=== PATIENT | male | born 1925 | race African-American/Black ===

== ENCOUNTER 2016-10-06 11:52 | Inpatient (IN) | payer OTHER ==
[~2016-10-06] VITALS: Ht 172.7 cm; Wt 69.1 kg
[2016-10-06 12:06] VITALS: BP 203/84; PULSE 75; RESP 15; TEMP 98.4; O2SAT 97
[2016-10-06 12:16] VITALS: BP 189/80; PULSE 70; RESP 15; TEMP 98.4; O2SAT 97
--- NOTE | 2016-10-06 12:16 | PD ---
HPI Chief Complaint: Edema Time Seen by Provider: 12:11 Travel History International Travel<30 days: No Contact w/Intl Traveler<30days: No Traveled to known affect area: No History of Present Illness HPI Patient was sent in by the ID for evaluation of left upper and left lower extremity edema. Patient reports left lower edema is chronic in the left upper extremity edema began about 6 days ago. Patient states he awoke with it. Denies any pain, trauma, recent IVs, chest pain, shortness of breath, or fevers. Patient denies anything like this in the past. Patient denies anything making it better or worse. [facility] and was reportedly told to wait for his scheduled appointment that was today. Patient has a history of hypertension, BPH, and COPD. Denies any history of internal bleeding. [facility] Past Medical History COPD: Yes Hypertension: Yes Respiratory: Yes (COPD) Social History Tobacco Use: No Substance Use: No Allergies-Medications (Allergen,Severity, Reaction): Coded Allergies: No Known Allergies (Unverified , 10/06/16) Review of Systems Except as stated in HPI: all other systems reviewed are Neg Physical Exam Narrative GENERAL: Well-developed, well nourished, in no acute distress, and non-ill appearing. SKIN: Focused skin assessment warm and dry. HEAD: Atraumatic. Normocephalic. EYES: Pupils equal and round. EOMI. No scleral icterus. No injection or drainage. ENT: No nasal bleeding or discharge. Mucous membranes pink and moist. NECK: Trachea midline. Supple. No nuclear rigidity. CARDIOVASCULAR: Regular rate and rhythm. No murmur appreciated. Radial and dorsal pulses are 2+, intact, and equal bilaterally. Capillary refill less than 2 seconds. RESPIRATORY: No accessory muscle use. No respiratory distress. Clear to auscultation. Breath sounds equal bilaterally. MUSCULOSKELETAL: No obvious deformities. No clubbing. No cyanosis. Trace edema left lower extremity and 2+ plus edema left upper extremity. Full range of motion. NEUROLOGICAL: Awake and alert. No obvious cranial nerve deficits. Motor grossly within normal limits. Normal speech. PSYCHIATRIC: Appropriate mood and affect; insight and judgment normal. Data Data Last Documented VS Vital Signs Date Time Temp Pulse Resp B/P Pulse Ox O2 Delivery O2 Flow Rate FiO2 10/06/16 14:00 74 15 194/87 97 Room Air 10/06/16 12:16 98.4 Orders Complete Blood Count With Diff (10/06/16 12:04) Basic Metabolic Panel (Bmp) (10/06/16 12:04) Act Partial Throm Time (Ptt) (10/06/16 12:04) Prothrombin Time / Inr (Pt) (10/06/16 12:04) Iv Access Insert/Monitor (10/06/16 12:04) Ecg Monitoring (10/06/16 12:04) Oximetry (10/06/16 12:04) Oxygen Administration (10/06/16 12:04) Chest, Single Ap (10/06/16 12:04) Us Leg Venous Doppler (10/06/16 12:04) Us Arm Venous Doppler (10/06/16 12:04) Enoxaparin Inj (Lovenox Inj) (10/06/16 13:30) Hydralazine Inj (Apresoline Inj) (10/06/16 14:15) Admit Order (Ed Use Only) (10/06/16 14:13) Labs Laboratory Tests Test 10/06/16 12:20 White Blood Count 4.5 TH/MM3 Red Blood Count 4.22 MIL/MM3 Hemoglobin 11.3 GM/DL Hematocrit 36.2 % Mean Corpuscular Volume 85.8 FL Mean Corpuscular Hemoglobin 26.9 PG Mean Corpuscular Hemoglobin 31.3 % Concent Red Cell Distribution Width 13.9 % Platelet Count 211 TH/MM3 Mean Platelet Volume 9.1 FL Neutrophils (%) (Auto) 63.6 % Lymphocytes (%) (Auto) 23.4 % Monocytes (%) (Auto) 10.6 % Eosinophils (%) (Auto) 1.5 % Basophils (%) (Auto) 0.9 % Neutrophils # (Auto) 2.8 TH/MM3 Lymphocytes # (Auto) 1.0 TH/MM3 Monocytes # (Auto) 0.5 TH/MM3 Eosinophils # (Auto) 0.1 TH/MM3 Basophils # (Auto) 0.0 TH/MM3 CBC Comment DIFF FINAL Differential Comment Prothrombin Time 10.8 SEC Prothromb Time International 1.0 RATIO Ratio Activated Partial 28.6 SEC Thromboplast Time Sodium Level 137 MEQ/L Potassium Level 5.3 MEQ/L Chloride Level 104 MEQ/L Carbon Dioxide Level 28.9 MEQ/L Anion Gap 4 MEQ/L Blood Urea Nitrogen 12 MG/DL Creatinine 1.06 MG/DL Estimat Glomerular Filtration 80 ML/MIN Rate Random Glucose 84 MG/DL Calcium Level 8.9 MG/DL MDM Medical Decision Making Medical Screen Exam Complete: Yes Emergency Medical Condition: Yes Interpretation(s) Chest x-ray read by the radiologist shows: 1. Minimal left lower lobe atelectasis. 2. Otherwise, no acute abnormality. Ultrasound read by the radiologist of left lower extremity shows: No evidence of DVT. Oxygen around left upper extremity read by the radiologist shows: Extensive occlusive deep venous thrombosis is noted within the left internal jugular, subclavian, axillary, brachial and basilic veins. Differential Diagnosis DVT, mass, electrolyte abnormality, CHF, other Narrative Course Patient was seen and examined. Patient was placed on [employer] and IV was established. Laboratory radiological studies were ordered. Discussed all findings and plan care with Dr. Carrillo, who is in agreement plan of care and disposition. Patient started on subcutaneous Lovenox ER. Given hydralazine for blood pressure. Discussed all findings and plan care of patient, who is agreeable for admission. All questions were answered. Physician Communication Physician Communication [id number] Becker, who is agreeable to admit the patient. Diagnosis Primary Impression: DVT (deep venous thrombosis) Qualified Code: I82.622 - Acute deep vein thrombosis (DVT) of left upper extremity, unspecified vein Admitting Information Admitting Physician Requests: Admit Condition: Stable Jai Allen Oct 06, 2016 12:16
[2016-10-06 12:40] LABS: AUTOMATED NEUTROPHIL # 2.8 TH/MM3 (1.8-7.7); BASOPHIL % 0.9 % (0.0-2.0); EOSINOPHIL # 0.1 TH/MM3 (0-0.4); EOSINOPHIL % 1.5 % (0.0-4.0); HEMATOCRIT 36.2 % (39.0-51.0); HEMO FLAGS DIFF FINAL; LYMPH % 23.4 % (9.0-44.0); MEAN CELL VOLUME 85.8 FL (80.0-100.0); MEAN CORPUSCULAR HEMOGLOBIN 26.9 PG (27.0-34.0); MEAN CORPUSCULAR HGB CONC 31.3 % (32.0-36.0); MONO % 10.6 % (0.0-8.0); NEUT % 63.6 % (16.0-70.0); PLATELET COUNT 211 TH/MM3 (150-450); RED BLOOD COUNT 4.22 MIL/MM3 (4.50-5.90); RED CELL DISTRIBUTION WIDTH 13.9 % (11.6-17.2); WHITE BLOOD COUNT 4.5 TH/MM3 (4.0-11.0)
--- NOTE | 2016-10-06 12:51 | RADRPT ---
EXAM DATE/TIME: 10/06/2016 12:26 [facility] COMPARISON: No previous studies available for comparison. INDICATIONS : Left leg edema. MEDICAL HISTORY : Hypertension. COPD. Anemia. Enlraged prostate. SURGICAL HISTORY : None. ENCOUNTER: Initial ACUITY: 4 - 6 days PAIN SCORE: 2/10 LOCATION: Left leg. TECHNIQUE: Venous ultrasound of the leg was performed from the inguinal ligament to the proximal calf. Real-gregorio e, color Doppler and spectral tracing, compression and augmentation techniques were used. FINDINGS: There is normal compressibility of the deep venous system from the inguinal region to the proximal ca lf. No echogenic clot is seen in the lumen of the common femoral, femoral, popliteal, and posterior tibial veins. There is a normal response of the venous system to proximal and distal augmentation an d respiration. CONCLUSION: No evidence of deep venous thrombosis within the left lower extremity. Gian To MD on October 06, 2016 at 12:48 Board Certified Radiologist. This report was verified electronically.
--- NOTE | 2016-10-06 12:54 | RADRPT ---
EXAM DATE/TIME: 10/06/2016 12:16 [facility] COMPARISON: No previous studies available for comparison. INDICATIONS : Left arm edema. MEDICAL HISTORY : Hypertension. COPD. Anemia. Enlraged prostate. SURGICAL HISTORY : None. ENCOUNTER: Initial ACUITY: 4 - 6 days PAIN SCORE: 0/10 LOCATION: Left arm. FINDINGS: Extensive occlusive deep venous thrombosis is noted within the left internal jugular, subclavian, axi llary, brachial and basilic veins. CONCLUSION: Extensive occlusive deep venous thrombosis is noted within the left internal jugular, subclavian, axi llary, brachial and basilic veins. Gian To MD on October 06, 2016 at 12:50 Board Certified Radiologist. This report was verified electronically.
[2016-10-06 13:00] LABS: PROTHROMBIN TIME - PATIENT 10.8 SEC (9.8-11.6)
[2016-10-06 13:04] LABS: APTT (PATIENT) 28.6 SEC (24.3-30.1)
[2016-10-06 13:15] LABS: BICARBONATE 28.9 MEQ/L (21.0-32.0)
[2016-10-06 13:16] LABS: POTASSIUM 5.3 MEQ/L (3.5-5.1)
--- NOTE | 2016-10-06 13:25 | RADRPT ---
EXAM DATE/TIME: 10/06/2016 12:50 [facility] COMPARISON: No previous studies available for comparison. INDICATIONS : Shortness of breath, left arm swelling. MEDICAL HISTORY : Hypertension. Chronic obstructive pulmonary disease. SURGICAL HISTORY : None. ENCOUNTER: Initial ACUITY: 3 weeks PAIN SCORE: 0/10 LOCATION: Bilateral chest FINDINGS: Lungs are slightly hyperexpanded. Subtle left lower lobe airspace disease with associated volume loss , consistent with atelectasis. Cardiomediastinal contours are within normal limits given portable hazel hnique. Bony thorax is intact. CONCLUSION: 1. Minimal left lower lobe atelectasis. 2. Otherwise, no acute abnormality. Wayne Cr MD on October 06, 2016 at 13:22 Board Certified Radiologist. This report was verified electronically.
[2016-10-06] MEDS ORDERED: ENOXAPARIN SODIUM 80 MG/0.8 ML SYRINGE SQ ONE (13:30)
[2016-10-06 14:00] VITALS: BP 194/87; PULSE 74; RESP 15; O2SAT 97
[2016-10-06] MEDS ORDERED: hydrALAZINE HCL 20 MG/ML VIAL IV PUSH ONE (14:15)
[2016-10-06 14:21] VITALS: BP_SYST 169; BP_SYST 175; BP_DIAS 77; BP_DIAS 85
[2016-10-06] MEDS ORDERED: ONDANSETRON HCL 4 MG/2 ML VIAL IVP PRN (14:30)
[2016-10-06] MEDS ORDERED: ACETAMINOPHEN 325 MG TAB PO PRN ×2 (14:30)
[2016-10-06] MEDS ORDERED: SODIUM CHLORIDE 0.9% FLUSH 10 ML FLUSH IV FLUSH PRN (14:30)
[2016-10-06] MEDS ORDERED: NALOXONE HCL 0.4 MG/ML AMP IV PRN (14:30)
[2016-10-06 16:30] VITALS: BP 168/70; PULSE 88; RESP 15; O2SAT 97
--- NOTE | 2016-10-06 16:57 | HHI.HP ---
[facility] Service [place] [facility] Primary Care Physician [facility] Admission Diagnosis extensive left upper extremity DVT Diagnoses: Chief Complaint: Left arm swelling Travel History International Travel<30 Days: No Contact w/Intl Traveler <30 Da: No Traveled to Known Affected Are: No History of Present Illness The patient is an 89-year-old male with a past medical history of COPD and chronic Chery catheter who is presenting to the hospital with left arm swelling. He states that one week ago he noticed his left arm has become swollen. He says he has home health care and reports daily weights and blood pressures on a daily basis and mentioned that his left arm was becoming more swollen. The patient denied any pain in the arm. He did endorse a discomfort in his left armpit. He had an appointment today at the [facility] to change his Chery catheter, which he does every month, and the physician assessed him and referred him to the hospital as there were concerns of blood clots in the left arm. The patient denies any history of prior blood clots. He denies any injury to the left upper extremity. He says he has been ambulating with his cane. The patient does not recall a history of blood clots in his family. The patient also mentioned that his left leg swells on and off. The patient says he has experienced chills here and there. He has been having normal bowel movements with stool softeners. He denies any recent travel. He says he's gained weight over the past couple of days. He does not have much of an appetite. He denies any rashes. He endorses some shortness of breath at night secondary to his COPD. He mentions he never had a colonoscopy because the cost of it was astronomical. The patient mentions he was at [facility] last year for hematuria and he had a PICC line placed at that time, though he is unsure if it was in the left or right upper extremity. Review of Systems Except as stated in HPI: all other systems reviewed are Neg Past Family Social History Past Medical History COPD Enlarged prostate Urinary retention requiring chronic Chery Past Surgical History Denies Allergies: Coded Allergies: No Known Allergies (Unverified , 10/06/16) Active Ordered Medications Current Medications Medications (Trade) Dose Ordered Sig/Billie Route Start Time Stop Time Status Last Admin (NS Flush) 2 ml UNSCH PRN IV FLUSH 10/06/16 14:30 (NS Flush) 2 ml BID IV FLUSH 10/06/16 21:00 (Tylenol) 650 mg Q4H PRN PO 10/06/16 14:30 (Zofran Inj) 4 mg Q6H PRN IVP 10/06/16 14:30 (Tylenol) 650 mg Q6H PRN PO 10/06/16 14:30 (Roxicodone) 5 mg Q4H PRN PO 10/06/16 14:30 (Narcan Inj) 0.4 mg UNSCH PRN IV 10/06/16 14:30 (Bethany-Colace) 1 tab BID PO 10/06/16 21:00 (Lovenox Inj) 70 mg Q12H SQ 10/07/16 02:00 (Vasotec Inj) 2.5 mg Q6H PRN IV PUSH 10/06/16 17:00 UNV Family History Diabetes Social History The patient does not smoke or drink. Physical Exam Vital Signs Vital Signs Date Time Temp Pulse Resp B/P Pulse Ox O2 Delivery O2 Flow Rate FiO2 10/06/16 14:21 62 15 175/85 97 10/06/16 14:00 74 15 194/87 97 Room Air 10/06/16 12:16 98.4 70 15 189/80 97 Room Air 10/06/16 12:16 97 Room Air 10/06/16 12:10 15 97 Room Air 10/06/16 12:06 98.4 75 15 203/84 97 Physical Exam GENERAL: Well-developed, well nourished, in no acute distress. SKIN: Focused skin assessment warm and dry. HEAD: Atraumatic. Normocephalic. EYES: Pupils equal and round. EOMI. No scleral icterus. No injection or drainage. ENT: No nasal bleeding or discharge. Mucous membranes pink and moist. NECK: Trachea midline. Supple. No nuclear rigidity. CARDIOVASCULAR: Regular rate and rhythm. No murmur appreciated. RESPIRATORY: Mild wheezing appreciated. MUSCULOSKELETAL: No obvious deformities. No clubbing. No cyanosis. 2+ plus edema left upper extremity from the hand to the neck. No lower extremity edema. : Chery strapped to left leg. NEUROLOGICAL: Awake and alert. No obvious cranial nerve deficits. Motor grossly within normal limits. Normal speech. PSYCHIATRIC: Appropriate mood and affect; insight and judgment normal. Laboratory Laboratory Tests Test 10/06/16 12:20 White Blood Count 4.5 Red Blood Count 4.22 Hemoglobin 11.3 Hematocrit 36.2 Mean Corpuscular Volume 85.8 Mean Corpuscular Hemoglobin 26.9 Mean Corpuscular Hemoglobin 31.3 Concent Red Cell Distribution Width 13.9 Platelet Count 211 Mean Platelet Volume 9.1 Neutrophils (%) (Auto) 63.6 Lymphocytes (%) (Auto) 23.4 Monocytes (%) (Auto) 10.6 Eosinophils (%) (Auto) 1.5 Basophils (%) (Auto) 0.9 Neutrophils # (Auto) 2.8 Lymphocytes # (Auto) 1.0 Monocytes # (Auto) 0.5 Eosinophils # (Auto) 0.1 Basophils # (Auto) 0.0 CBC Comment DIFF FINAL Differential Comment Prothrombin Time 10.8 Prothromb Time International 1.0 Ratio Activated Partial 28.6 Thromboplast Time Sodium Level 137 Potassium Level 5.3 Chloride Level 104 Carbon Dioxide Level 28.9 Anion Gap 4 Blood Urea Nitrogen 12 Creatinine 1.06 Estimat Glomerular Filtration 80 Rate Random Glucose 84 Calcium Level 8.9 Result Diagram: 10/06/16 1220 10/06/16 1220 Imaging Last Impressions Upper Extremity Ultrasound 10/06/16 1204 Signed Impressions: Service Date/Time: Thursday, October 06, 2016 12:16 - CONCLUSION: Extensive occlusive deep venous thrombosis is noted within the left internal jugular, subclavian, axillary, brachial and basilic veins. Gian To MD Lower Extremity Ultrasound 10/06/16 1204 Signed Impressions: Service Date/Time: Thursday, October 06, 2016 12:26 - CONCLUSION: No evidence of deep venous thrombosis within the left lower extremity. Gian To MD Chest X-Ray 10/06/16 1204 Signed Impressions: Service Date/Time: Thursday, October 06, 2016 12:50 - CONCLUSION: 1. Minimal left lower lobe atelectasis. 2. Otherwise, no acute abnormality. Wayne Cr MD Assessment and Plan Assessment and Plan Extensive left sided upper extremity DVT The patient has been having left upper extremity swelling for the past week and has been progressively getting worse. [facility] showed: Extensive occlusive deep venous thrombosis within the left internal jugular, subclavian, axillary, brachial and basilic veins. He was started on Lovenox. He says last year he was hospitalized and had a PICC line placed but is not sure if it was in the left or right upper extremity. - Continue Lovenox 70 mg subcutaneous twice a day. - Pain control with a bowel regimen. - Consult hematology as the DVT is quite extensive. Accelerated hypertension Blood pressure noted to be 203/84 in the emergency department. She received IV hydralazine. - Resume home medications. - Vasotec IV as needed. Anemia Unsure baseline. The patient has never had a colonoscopy. - Follow CBC. - Follow up with hematology. - Check iron studies, folate, B12 and Hemoccult. Urinary retention The patient has a chronic Chery and last changed it on 10/06/16. - Continue home meds. - Chery care. COPD Breathing stable at this time. - oxygen and nebs as needed. - resume home regimen. Hyperkalemia The sample was hemolyzed. - Repeat potassium in the morning. PPx: Lovenox Code Status DNR Discussed Condition With Pt, Emery Allen Physician Certification 2 Midnight Certification Type: Admission for Inpatient Services Order for Inpatient Services The services are ordered in accordance with Medicare regulations or non- Medicare payer requirements, as applicable. In the case of services not specified as inpatient-only, they are appropriately provided as inpatient services in accordance with the 2-midnight benchmark. Estimated LOS (days): 2 days is the estimated time the patient will need to remain in the hospital, assuming treatment plan goals are met and no additional complications. Post-Hospital Plan: Home Christopher Becker DO Oct 06, 2016 16:57
[2016-10-06] MEDS ORDERED: RESP: ALBUTEROL 2.5 MG/IPRATROPIUM 0.5 MG NEB (PRN) NEB (17:00)
[2016-10-06] MEDS ORDERED: TAMS0.4C4 PO (17:08)
[2016-10-06] MEDS ORDERED: ADAL30TA5 PO (17:08)
[2016-10-06] MEDS ORDERED: SYMB80AE INH (17:08)
[2016-10-06] MEDS ORDERED: METO25TA3 PO (17:08)
[2016-10-06] MEDS ORDERED: PROS5TAB PO (17:08)
[2016-10-06] MEDS ORDERED: VENTAER INH (17:11)
[2016-10-06] MEDS ORDERED: CAPT25TA2 PO (17:11)
[2016-10-06] MEDS ORDERED: SUCR1S PO (17:11)
[2016-10-06 18:35] LABS: TRANSFERRIN IRON PROFILE 178 MG/DL (200-360)
[2016-10-06 19:00] LABS: FERRITIN 85 NG/ML (26-388)
[2016-10-06 19:21] VITALS: BP 165/72; PULSE 85; RESP 20; TEMP 98; O2SAT 97
[2016-10-06] MEDS: METOPROLOL TARTRATE 25 MG TAB PO SCH (21:29)
[2016-10-06] MEDS: DOCUSATE SODIUM 50 MG/SENNA 8.6 MG TAB PO SCH (21:29)
[2016-10-06] MEDS: SODIUM CHLORIDE 0.9% FLUSH 10 ML FLUSH IV FLUSH SCH (21:29)
[2016-10-06] MEDS: SUCRALFATE 1 GM/10 ML CUP PO SCH (21:29)
[2016-10-06] MEDS: CAPTOPRIL 25 MG TAB PO SCH (21:29)
[2016-10-06] MEDS: BUDESONIDE-FORMOTEROL 80/4.5 MCG INHALER INH SCH (21:30)
--- NOTE | 2016-10-06 22:07 | MB ---
cc: HUMA GILBERT M.D. DATE OF CONSULTATION: 10/06/2016. REASON FOR CONSULTATION: Extensive occlusive deep vein thrombosis in the left internal jugular, subclavian, axillary, brachial and basilic veins. PATIENT PROFILE: The patient is an 89-year-old black male. He is . He was born in [facility]. He has lived in [place] since 2004. He stopped smoking 25 years ago and smoked a pack of cigarettes per day. He does not drink alcohol. In the past, alcohol ingestion was social. 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 HISTORY OF PRESENT ILLNESS: The patient is an 89-year-old male who generally enjoys good health. He has urinary retention from benign prostatic hypertrophy which has required an indwelling Chery. He has COPD, probably from previous tobacco use. He dates his current problem back to six days ago when he developed acute swelling of the left arm. The swelling was so bad he could close his fist. He presented to the emergency room today with the above history and had an ultrasound of the left upper arm showing extensive occlusive deep venous thrombosis within the left internal jugular, subclavian, axillary, brachial and basilic veins. He also had an ultrasound of the left leg showing no evidence of the venous thrombosis. He had a chest x-ray showing minimal left lower lobe atelectasis; otherwise, no abnormality. This was a single AP view. Other laboratory studies consist of a hemoglobin of 11.3, white count 4500, platelets 211,000. BUN 12, creatinine 1.0, GFR is 80. Iron is 81, TIBC is 249, saturation 32, ferritin 85. B12 is 415 and folate is 12.4. There has been no change in his health. He has had no constitutional symptoms of illness. There is no preceding trauma. He did not in any way use the left arm in a manner different from before. There is no heavy lifting or twisting involving the left arm which would have subjected him to a risk of venous thrombosis. PAST SURGICAL HISTORY: No previous surgery. PAST MEDICAL HISTORY: 1. Indwelling Chery catheter x5 years. 2. Benign prostatic hypertrophy. 3. Hypertension. 4. COPD. MEDICATIONS PRIOR TO ADMISSION: 1. Albuterol. 2. Symbicort. 3. Captopril. 4. Finasteride. 5. Metoprolol. 6. Nifedipine. 7. Flomax. 8. Carafate. ALLERGIES: NO KNOWN ALLERGIES. FAMILY HISTORY: Noncontributory without any history of thromboembolic disease. REVIEW OF SYSTEMS: No change in vision or hearing. No chest pain or palpitations. No shortness of breath. No abdominal or pelvic pain. No change in bowel habits. No weight loss. He has an indwelling Chery catheter. No bone pain other than some mild arthritis. No skin problems. His simple complaints is the acute swelling of the left arm. PHYSICAL EXAMINATION: GENERAL: Physical examination reveals a gentleman who appears well. The left arm is markedly swollen from the shoulder down to the fingers. VITAL SIGNS: Blood pressure is 160/70, respiratory rate 15, pulse 80, afebrile. O2 sat of 97%. HEAD, EYES, EARS, NOSE, THROAT: Head is normocephalic. Sclerae and conjunctivae normal. Oropharynx unremarkable. LYMPHATIC: There is no adenopathy including careful examination a left supraclavicular and left axillary area. HEART: Regular rhythm. LUNGS: Clear without rales, wheezes or rhonchi. ABDOMEN: Soft. There is no enlarged liver spleen. EXTREMITIES: Trace edema except for the left arm which is markedly edematous and swollen. NEUROLOGIC: No focal weakness. Cognition and affect normal. SKIN: Unremarkable. ASSESSMENT: The patient is an 89-year-old male presenting with an acute venous thrombosis of the left upper extremity extending into the left internal jugular, subclavian and axillary veins. This is a significant venous thrombosis. I do not see a precipitating event. RECOMMENDATIONS: 1. CT scan of the thorax to make sure there is not a mediastinal mass as the original chest x-ray was only an AP. I have ordered this 2. I would strongly recommend three months of anticoagulation. I believe a simple thing to do would be go give him apixaban 10 milligrams p.o. twice a day for one week and then apixaban 5 milligrams p.o. twice a day to complete a total of three months. Following the three months, I would recommend one aspirin tablet a day. He has normal renal function and weighs 73 kg. Under these circumstances, He should be able to tolerate the full dose of apixaban. If this cannot be obtained, other options would be Xarelto. If he cannot obtain either of the medicines, then anticoagulation with Coumadin for a minimum of three months would be appropriate. I would begin the apixaban at the point that he is supposed to receive the next dose of Lovenox and stop the Lovenox His current Lovenox is every 12 hours. It will be important to determine that he can obtain the apixaban (eliquis) after discharge and would have discharge planners confirm this. Thank you for the consultation. MD TIERNEY Biggs/STEVE /7:23 PM /9:58 PM JESSICA
[2016-10-07] VITALS (10 sets, daily range): BP systolic 150–207; BP diastolic 72–91; PULSE 67–94; RESP 16–20; TEMP 97–98.6; O2SAT 93–96
[2016-10-07] MEDS ORDERED: ENOXAPARIN SODIUM 80 MG/0.8 ML SYRINGE SQ SCH (02:00)
[2016-10-07 06:21] LABS: AUTOMATED NEUTROPHIL # 2.2 TH/MM3 (1.8-7.7); BASOPHIL # 0.1 TH/MM3 (0-0.2); BASOPHIL % 1.3 % (0.0-2.0); EOSINOPHIL # 0.1 TH/MM3 (0-0.4); EOSINOPHIL % 2.1 % (0.0-4.0); HEMATOCRIT 33.6 % (39.0-51.0); HEMO FLAGS DIFF FINAL; LYMPH % 34.6 % (9.0-44.0); LYMPHOCYTE # 1.5 TH/MM3 (1.0-4.8); MEAN CELL VOLUME 85.2 FL (80.0-100.0); MEAN CORPUSCULAR HEMOGLOBIN 27.2 PG (27.0-34.0); MONO % 10.7 % (0.0-8.0); NEUT % 51.3 % (16.0-70.0); PLATELET COUNT 197 TH/MM3 (150-450); RED BLOOD COUNT 3.95 MIL/MM3 (4.50-5.90); RED CELL DISTRIBUTION WIDTH 13.6 % (11.6-17.2); WHITE BLOOD COUNT 4.3 TH/MM3 (4.0-11.0)
[2016-10-07 06:30] LABS: PROTHROMBIN TIME - PATIENT 11.4 SEC (9.8-11.6)
[2016-10-07 06:47] LABS: ALKALINE PHOSPHATASE 77 U/L (45-117); ALT (GPT) 11 U/L (12-78); ANION GAP 7 MEQ/L (5-15); AST (GOT) 19 U/L (15-37); BICARBONATE 28.8 MEQ/L (21.0-32.0); BLOOD UREA NITROGEN 13 MG/DL (7-18); CHLORIDE 105 MEQ/L (98-107); GLOMERULAR FILTRATION RATE 98 ML/MIN (>89); POTASSIUM 3.4 MEQ/L (3.5-5.1); SODIUM (NA) 141 MEQ/L (136-145); TOTAL BILIRUBIN ADULT 0.3 MG/DL (0.2-1.0)
[2016-10-07] MEDS: SUCRALFATE 1 GM/10 ML CUP PO SCH ×4 (08:06→20:20)
[2016-10-07] MEDS: METOPROLOL TARTRATE 25 MG TAB PO SCH ×2 (08:07→20:20)
[2016-10-07] MEDS: FINASTERIDE 5 MG TAB PO SCH (08:07)
[2016-10-07] MEDS: TAMSULOSIN HCL 0.4 MG CAP PO SCH (08:07)
[2016-10-07] MEDS: SODIUM CHLORIDE 0.9% FLUSH 10 ML FLUSH IV FLUSH SCH ×2 (08:07→20:19)
[2016-10-07] MEDS: CAPTOPRIL 25 MG TAB PO SCH ×3 (08:07→17:18)
[2016-10-07] MEDS: DOCUSATE SODIUM 50 MG/SENNA 8.6 MG TAB PO SCH ×2 (08:07→20:20)
[2016-10-07] MEDS: BUDESONIDE-FORMOTEROL 80/4.5 MCG INHALER INH SCH ×2 (08:07→20:21)
--- NOTE | 2016-10-07 10:38 | RADRPT ---
EXAM DATE/TIME: 10/07/2016 10:08 [facility] COMPARISON: US ARM LEFT VENOUS DOPPLER, October 06, 2016, 12:16. INDICATIONS : Evaluate for mass. RADIATION DOSE: 9.96 CTDIvol (mGy) MEDICAL HISTORY : Cardiovascular disease. Hypertension. Chronic obstructive pulmonary disease. SURGICAL HISTORY : None. ENCOUNTER: Initial ACUITY: 1 day PAIN SCALE: 0/10 LOCATION: Bilateral chest TECHNIQUE: Volumetric scanning of the chest was performed. Using automated exposure control and adjustment of t he mA and/or kV according to patient size, radiation dose was kept as low as reasonably achievable to obtain optimal diagnostic quality images. FINDINGS: LUNGS: There is no consolidation or pneumothorax. No concerning pulmonary nodule is visualized. There is de pendent atelectasis in the left lower lobe. There are bullous changes in the anterior-inferior aspect of the right upper lobe. PLEURAE: There is trace left pleural fluid. MEDIASTINUM: The heart and great vessels demonstrate no acute abnormality. Coronary artery calcification is prese nt and there is severe atherosclerotic disease of the aorta. In the superior aspect of the anterior m ediastinum there is a bilobed fluid density mass measuring 5.2 x 2.5 x 3.8 cm. It abuts the anterior aspect of the right brachiocephalic artery. The left brachiocephalic vein is compressed between the m ass and the right brachiocephalic artery. Although this is a noncontrast examination a do not appreci ate any portions which appears solid. There is no mediastinal or hilar lymphadenopathy. AXILLAE: Within normal limits. No lymphadenopathy. MUSCULOSKELETAL: There are degenerative changes of the thoracic spine. MISCELLANEOUS: The visualized upper abdominal organs demonstrate no acute abnormality. Low-density lesion is partial ly visualized in the right upper pole kidney measuring 2.3 cm. It has density measurements characteri stic of a cyst. CONCLUSION: 1. There is a mass in the superior aspect of the anterior mediastinum measuring 5.2 x 2.5 x 3.8 cm. I t has a mass effect and compresses the left brachiocephalic vein between the mass itself and the righ t brachiocephalic artery. This may be a contributing factor to the recent development of left upper e xtremity venous thrombosis. 2. Based on the appearance on this examination a thymic cyst is a top consideration. Other potential considerations would include a thymoma or less likely a cystic appearing tracey mass. 3. Nonacute findings include coronary artery calcification and severe atherosclerotic disease of the aorta. Segundo Solis MD on October 07, 2016 at 10:23 Board Certified Radiologist. This report was verified electronically.
--- NOTE | 2016-10-07 11:39 | HHI.PR ---
Subjective Remarks The patient said he was feeling better and he was looking forward to going home. He had questions regarding his CT scan results. He states his blood pressure tends to run high at home and [facility]. Objective Vitals Vital Signs Date Time Temp Pulse Resp B/P Pulse Ox O2 Delivery O2 Flow Rate FiO2 10/07/16 08:11 Room Air 10/07/16 08:00 97.0 81 20 175/76 96 10/07/16 07:28 93 21 10/07/16 04:00 98.6 79 20 158/83 95 10/07/16 04:00 Room Air 10/07/16 00:00 Room Air 10/07/16 00:00 98.5 67 20 153/72 95 10/06/16 20:00 Room Air 10/06/16 19:21 98.0 85 20 165/72 97 10/06/16 16:30 88 15 168/70 97 Room Air 10/06/16 14:21 78 15 169/77 97 10/06/16 14:00 74 15 194/87 97 Room Air 10/06/16 12:16 98.4 70 15 189/80 97 Room Air 10/06/16 12:16 97 Room Air 10/06/16 12:10 15 97 Room Air 10/06/16 12:06 98.4 75 15 203/84 97 I/O 10/06/16 10/06/16 10/06/16 10/07/16 10/07/16 10/07/16 07:00 15:00 23:00 07:00 15:00 23:00 Intake Total 360 ml Output Total 550 ml Balance -190 ml Intake Oral 360 ml Output Urine Total 550 ml # Voids 0 Result Diagram: 10/07/16 0541 10/07/16 0541 Imaging Last Impressions Upper Extremity Ultrasound 10/06/16 1204 Signed Impressions: Service Date/Time: Thursday, October 06, 2016 12:16 - CONCLUSION: Extensive occlusive deep venous thrombosis is noted within the left internal jugular, subclavian, axillary, brachial and basilic veins. Gian To MD Lower Extremity Ultrasound 10/06/16 1204 Signed Impressions: Service Date/Time: Thursday, October 06, 2016 12:26 - CONCLUSION: No evidence of deep venous thrombosis within the left lower extremity. Gian To MD Chest X-Ray 10/06/16 1204 Signed Impressions: Service Date/Time: Thursday, October 06, 2016 12:50 - CONCLUSION: 1. Minimal left lower lobe atelectasis. 2. Otherwise, no acute abnormality. Wayne Cr MD Chest CT 10/06/16 0000 Signed Impressions: Service Date/Time: Friday, October 07, 2016 10:08 - CONCLUSION: 1. There is a mass in the superior aspect of the anterior mediastinum measuring 5.2 x 2.5 x 3.8 cm. It has a mass effect and compresses the left brachiocephalic vein between the mass itself and the right brachiocephalic artery. This may be a contributing factor to the recent development of left upper extremity venous thrombosis. 2. Based on the appearance on this examination a thymic cyst is a top consideration. Other potential considerations would include a thymoma or less likely a cystic appearing tracey mass. 3. Nonacute findings include coronary artery calcification and severe atherosclerotic disease of the aorta. Segundo Solis MD Objective Remarks GENERAL: Well-developed, well nourished, in no acute distress. SKIN: Focused skin assessment warm and dry. HEAD: Atraumatic. Normocephalic. EYES: Pupils equal and round. EOMI. No scleral icterus. No injection or drainage. ENT: No nasal bleeding or discharge. Mucous membranes pink and moist. NECK: Trachea midline. Supple. No nuclear rigidity. CARDIOVASCULAR: Regular rate and rhythm. No murmur appreciated. RESPIRATORY: Mild wheezing appreciated. MUSCULOSKELETAL: No obvious deformities. No clubbing. No cyanosis. 2+ plus edema left upper extremity from the hand to the neck. No lower extremity edema. : Chery strapped to left leg. NEUROLOGICAL: Awake and alert. No obvious cranial nerve deficits. Motor grossly within normal limits. Normal speech. PSYCHIATRIC: Appropriate mood and affect; insight and judgment normal. Medications and IVs Current Medications Medications (Trade) Dose Ordered Sig/Billie Route Start Time Stop Time Status Last Admin (NS Flush) 2 ml UNSCH PRN IV FLUSH 10/06/16 14:30 (NS Flush) 2 ml BID IV FLUSH 10/06/16 21:00 10/07/16 08:07 (Tylenol) 650 mg Q4H PRN PO 10/06/16 14:30 (Zofran Inj) 4 mg Q6H PRN IVP 10/06/16 14:30 (Tylenol) 650 mg Q6H PRN PO 10/06/16 14:30 (Roxicodone) 5 mg Q4H PRN PO 10/06/16 14:30 (Narcan Inj) 0.4 mg UNSCH PRN IV 10/06/16 14:30 (Bethany-Colace) 1 tab BID PO 10/06/16 21:00 10/07/16 08:07 (Vasotec Inj) 2.5 mg Q6H PRN IV PUSH 10/06/16 17:00 (Symbicort 80-4.5 Mcg Inh) 2 puff Q12HR INH 10/06/16 21:00 10/07/16 08:07 (Capoten) 25 mg TID PO 10/06/16 18:00 10/07/16 08:07 (Proscar) 5 mg DAILY PO 10/07/16 09:00 10/07/16 08:07 (Lopressor) 25 mg BID PO 10/06/16 21:00 10/07/16 08:07 (Carafate Liq) 1 gm QID PO 10/06/16 18:00 10/07/16 08:06 (Flomax) 0.4 mg DAILY PO 10/07/16 09:00 10/07/16 08:07 Potassium Bicarb/ Potassium Chloride 50 meq 50 meq ONCE ONCE PO 10/07/16 09:15 10/07/16 09:16 UNV (Heparin-D5W Inj) 250 ml @ 0 mls/hr TITRATE IV 10/07/16 11:30 UNV (Procardia Xl) 30 mg BID PO 10/07/16 11:45 UNV A/P Assessment and Plan Extensive left sided upper extremity DVT/ Mediastinal mass The patient has been having left upper extremity swelling for the past week and has been progressively getting worse. [facility] showed: Extensive occlusive deep venous thrombosis within the left internal jugular, subclavian, axillary, brachial and basilic veins. He was started on Lovenox. Hematology consult appreciated. CT chest showed: There is a mass in the superior aspect of the anterior mediastinum measuring 5.2 x 2.5 x 3.8 cm; It has a mass effect and compresses the left brachiocephalic vein between the mass itself and the right brachiocephalic artery; Based on the appearance on this examination a thymic cyst is a top consideration. - switch Lovenox to a heparin gtt. - cardiothoracic surgery consult requested regarding mediastinal mass. - follow up with hematology. - Pain control with a bowel regimen. Accelerated hypertension Blood pressure noted to be 203/84 in the emergency department. He received IV hydralazine. Blood pressure continues to fluctuate. - Resume home medications. Add HCTZ if no improvement. - Vasotec IV as needed. Anemia Unsure baseline. The patient has never had a colonoscopy. Iron studies noted. - Follow CBC. - Follow up with hematology. - Check Hemoccult. Urinary retention The patient has a chronic Chery and last changed it on 10/06/16. - Continue home meds. - Chery care. COPD Breathing stable at this time. - oxygen and nebs as needed. - resume home regimen. PPx: Lovenox Discharge Planning Awaiting CT surgery Christopher Craig DO Oct 07, 2016 11:39
[2016-10-07] MEDS ORDERED: POTASSIUM CHLORIDE 25 MEQ EFFERVESCENT TAB PO ONE (12:00)
[2016-10-07] MEDS: NIFEdipine 30 MG SUSTAINED RELEASE TAB PO SCH ×2 (12:28→20:20)
[2016-10-07] MEDS: HEPARIN-D5W INJ 250 ML IV SCH (12:33)
[2016-10-07] MEDS ORDERED: APIXABAN 5 MG TABLET PO SCH (14:00)
[2016-10-07] MEDS: ENALAPRILAT 2.5 MG/2 ML VIAL IV PUSH PRN (17:18)
--- NOTE | 2016-10-07 19:30 | PD.ONC.PN ---
Subjective Subjective Remarks left arm feels less heavy Objective Data Date Time Temp Pulse Resp B/P Pulse Ox O2 Delivery O2 Flow Rate FiO2 10/07/16 18:04 174/80 10/07/16 17:25 202/84 10/07/16 16:00 Room Air 10/07/16 16:00 97.9 91 20 207/91 93 10/07/16 12:00 98.5 77 20 198/86 94 10/07/16 12:00 98.5 94 20 198/ 94 10/07/16 12:00 Room Air 10/07/16 08:11 Room Air 10/07/16 08:00 97.0 81 20 175/76 96 10/07/16 07:28 93 21 10/07/16 04:00 98.6 79 20 158/83 95 10/07/16 04:00 Room Air 10/07/16 00:00 Room Air 10/07/16 00:00 98.5 67 20 153/72 95 10/06/16 20:00 Room Air 10/07/16 10/07/16 10/07/16 07:00 15:00 23:00 Intake Total 360 ml 385 ml Output Total 550 ml 450 ml Balance -190 ml -65 ml Result Diagram: 10/07/16 0541 10/07/16 0541 Laboratory Results Laboratory Tests Test 10/07/16 10/07/16 05:41 12:45 White Blood Count 4.3 TH/MM3 Red Blood Count 3.95 MIL/MM3 Hemoglobin 10.7 GM/DL Hematocrit 33.6 % Mean Corpuscular Volume 85.2 FL Mean Corpuscular Hemoglobin 27.2 PG Mean Corpuscular Hemoglobin 32.0 % Concent Red Cell Distribution Width 13.6 % Platelet Count 197 TH/MM3 Mean Platelet Volume 8.7 FL Neutrophils (%) (Auto) 51.3 % Lymphocytes (%) (Auto) 34.6 % Monocytes (%) (Auto) 10.7 % Eosinophils (%) (Auto) 2.1 % Basophils (%) (Auto) 1.3 % Neutrophils # (Auto) 2.2 TH/MM3 Lymphocytes # (Auto) 1.5 TH/MM3 Monocytes # (Auto) 0.5 TH/MM3 Eosinophils # (Auto) 0.1 TH/MM3 Basophils # (Auto) 0.1 TH/MM3 CBC Comment DIFF FINAL Differential Comment Prothrombin Time 11.4 SEC Prothromb Time International 1.0 RATIO Ratio Sodium Level 141 MEQ/L Potassium Level 3.4 MEQ/L Chloride Level 105 MEQ/L Carbon Dioxide Level 28.8 MEQ/L Anion Gap 7 MEQ/L Blood Urea Nitrogen 13 MG/DL Creatinine 0.89 MG/DL Estimat Glomerular Filtration 98 ML/MIN Rate Random Glucose 85 MG/DL Calcium Level 8.2 MG/DL Total Bilirubin 0.3 MG/DL Aspartate Amino Transf 19 U/L (AST/SGOT) Alanine Aminotransferase 11 U/L (ALT/SGPT) Alkaline Phosphatase 77 U/L Total Protein 6.0 GM/DL Albumin 2.7 GM/DL Activated Partial 35.0 SEC Thromboplast Time Imaging Studies Last 48 hours Impressions Upper Extremity Ultrasound 10/06/16 1204 Signed Impressions: Service Date/Time: Thursday, October 06, 2016 12:16 - CONCLUSION: Extensive occlusive deep venous thrombosis is noted within the left internal jugular, subclavian, axillary, brachial and basilic veins. Gian To MD Lower Extremity Ultrasound 10/06/16 1204 Signed Impressions: Service Date/Time: Thursday, October 06, 2016 12:26 - CONCLUSION: No evidence of deep venous thrombosis within the left lower extremity. Gian To MD Chest X-Ray 10/06/16 1204 Signed Impressions: Service Date/Time: Thursday, October 06, 2016 12:50 - CONCLUSION: 1. Minimal left lower lobe atelectasis. 2. Otherwise, no acute abnormality. Wayne Cr MD Chest CT 10/06/16 0000 Signed Impressions: Service Date/Time: Friday, October 07, 2016 10:08 - CONCLUSION: 1. There is a mass in the superior aspect of the anterior mediastinum measuring 5.2 x 2.5 x 3.8 cm. It has a mass effect and compresses the left brachiocephalic vein between the mass itself and the right brachiocephalic artery. This may be a contributing factor to the recent development of left upper extremity venous thrombosis. 2. Based on the appearance on this examination a thymic cyst is a top consideration. Other potential considerations would include a thymoma or less likely a cystic appearing tracey mass. 3. Nonacute findings include coronary artery calcification and severe atherosclerotic disease of the aorta. Segundo Solis MD Administered Medications Medications (Trade) Dose Ordered Sig/Billie Route PRN Reason Start Time Stop Time Status Last Admin Dose Admin Sodium Chloride (NS Flush) 2 ml BID IV FLUSH 10/06/16 21:00 10/07/16 08:07 Senna/Docusate Sodium (Bethany-Colace) 1 tab BID PO 10/06/16 21:00 10/07/16 08:07 Enalaprilat (Vasotec Inj) 2.5 mg Q6H PRN IV PUSH SBP> OR = 180, DBP> OR = 100 10/06/16 17:00 10/07/16 17:18 Budesonide/ Formoterol Fumarate (Symbicort 80-4.5 Mcg Inh) 2 puff Q12HR INH 10/06/16 21:00 10/07/16 08:07 Captopril (Capoten) 25 mg TID PO 10/06/16 18:00 10/07/16 17:18 Finasteride (Proscar) 5 mg DAILY PO 10/07/16 09:00 10/07/16 08:07 Metoprolol Tartrate (Lopressor) 25 mg BID PO 10/06/16 21:00 10/07/16 08:07 Sucralfate (Carafate Liq) 1 gm QID PO 10/06/16 18:00 10/07/16 17:18 Tamsulosin HCl 0.4 mg 0.4 mg DAILY PO 10/07/16 09:00 10/07/16 08:07 Heparin Sodium/ Dextrose (Heparin-D5W Inj) 250 ml @ 0 mls/hr TITRATE IV 10/07/16 11:30 10/07/16 12:33 Nifedipine (Procardia Xl) 30 mg BID PO 10/07/16 12:00 10/07/16 12:28 Objective Remarks GENERAL: Well-nourished, well-developed patient. SKIN: Warm and dry. HEAD: Normocephalic. EYES: No scleral icterus. No injection or drainage. NECK: Supple, trachea midline. No JVD or lymphadenopathy. LYMPHATIC: No adenopathy. CARDIOVASCULAR: Regular rate and rhythm without murmurs. RESPIRATORY: Breath sounds equal bilaterally. No accessory muscle use. GASTROINTESTINAL: Abdomen soft, non-tender, nondistended. EXTREMITIES: remains with significant swelling entire left arm and supraclavicular area MUSCULOSKELETAL: Adequate muscle tone. NEUROLOGICAL: No obvious focal deficit. Awake, alert, and oriented x3. PSYCHIATRIC: Appropriate mood and affect; insight and judgment normal. Assessment/Plan Assessment 1: THROMBOSIS LEFT ARM/AXILLA, DUE TO MASS IN SUPERIOR MEDIASTINUM: identified on ct of thorax. Plan 1: consult thoracic surgery for recommendations 2: continue heparin. 3: findings and images reviewed with patient and he is reluctant to consider any intervention due to age. I asked him to listen to the thoracic surgeon. Charly Salinas MD Oct 07, 2016 19:30
[2016-10-07 20:07] LABS: APTT (PATIENT) 93.4 SEC (24.3-30.1)
[2016-10-07 22:33] LABS: APTT (PATIENT) 65.3 SEC (24.3-30.1)
[2016-10-08] VITALS (7 sets, daily range): BP systolic 115–180; BP diastolic 56–81; PULSE 62–83; RESP 18–20; TEMP 97.6–98.8; O2SAT 93–96
[2016-10-08] MEDS: NIFEdipine 30 MG SUSTAINED RELEASE TAB PO SCH ×2 (08:27→20:19)
[2016-10-08] MEDS: FINASTERIDE 5 MG TAB PO SCH (08:27)
[2016-10-08] MEDS: TAMSULOSIN HCL 0.4 MG CAP PO SCH (08:27)
[2016-10-08] MEDS: DOCUSATE SODIUM 50 MG/SENNA 8.6 MG TAB PO SCH ×2 (08:27→20:19)
[2016-10-08] MEDS: SUCRALFATE 1 GM/10 ML CUP PO SCH ×4 (08:27→20:19)
[2016-10-08] MEDS: METOPROLOL TARTRATE 25 MG TAB PO SCH ×2 (08:27→20:18)
[2016-10-08] MEDS: CAPTOPRIL 25 MG TAB PO SCH ×3 (08:27→16:46)
[2016-10-08] MEDS: BUDESONIDE-FORMOTEROL 80/4.5 MCG INHALER INH SCH ×2 (08:27→20:18)
[2016-10-08] MEDS: SODIUM CHLORIDE 0.9% FLUSH 10 ML FLUSH IV FLUSH SCH ×2 (08:28→21:00)
--- NOTE | 2016-10-08 09:32 | HHI.PR ---
Subjective Remarks Patient seen and examined this am. Vitals stable, intermittent hypertension. Feels well, no complaints. States left arm swelling improved, he can see his knuckles and make a fist. Objective Vital Signs Date Time Temp Pulse Resp B/P Pulse Ox O2 Delivery O2 Flow Rate FiO2 10/08/16 08:29 Room Air 10/08/16 08:00 98.1 79 20 180/79 94 10/08/16 04:00 Room Air 10/08/16 04:00 98.5 69 18 156/72 96 10/08/16 00:00 98.0 66 18 160/64 96 10/08/16 00:00 Room Air 10/07/16 20:13 95 21 10/07/16 20:00 98.4 72 16 150/72 95 10/07/16 20:00 Room Air 10/07/16 18:04 174/80 10/07/16 17:25 202/84 10/07/16 16:00 Room Air 10/07/16 16:00 97.9 91 20 207/91 93 10/07/16 12:00 98.5 77 20 198/86 94 10/07/16 12:00 98.5 94 20 198/ 94 10/07/16 12:00 Room Air I/O 10/07/16 10/07/16 10/07/16 10/08/16 10/08/16 10/08/16 07:00 15:00 23:00 07:00 15:00 23:00 Intake Total 360 ml 385 ml 326 ml 75 ml Output Total 550 ml 450 ml 1000 ml 300 ml Balance -190 ml -65 ml -674 ml -225 ml Intake Oral 360 ml 360 ml 240 ml 0 ml IV Total 25 ml 86 ml 75 ml Output Urine Total 550 ml 450 ml 1000 ml 300 ml # Bowel Movements 1 0 0 Result Diagram: 10/07/16 0541 10/07/16 0541 Imaging Last Impressions Upper Extremity Ultrasound 10/06/16 1204 Signed Impressions: Service Date/Time: Thursday, October 06, 2016 12:16 - CONCLUSION: Extensive occlusive deep venous thrombosis is noted within the left internal jugular, subclavian, axillary, brachial and basilic veins. Gian To MD Lower Extremity Ultrasound 10/06/16 1204 Signed Impressions: Service Date/Time: Thursday, October 06, 2016 12:26 - CONCLUSION: No evidence of deep venous thrombosis within the left lower extremity. Gian To MD Chest X-Ray 10/06/16 1204 Signed Impressions: Service Date/Time: Thursday, October 06, 2016 12:50 - CONCLUSION: 1. Minimal left lower lobe atelectasis. 2. Otherwise, no acute abnormality. Wayne Cr MD Chest CT 10/06/16 0000 Signed Impressions: Service Date/Time: Friday, October 07, 2016 10:08 - CONCLUSION: 1. There is a mass in the superior aspect of the anterior mediastinum measuring 5.2 x 2.5 x 3.8 cm. It has a mass effect and compresses the left brachiocephalic vein between the mass itself and the right brachiocephalic artery. This may be a contributing factor to the recent development of left upper extremity venous thrombosis. 2. Based on the appearance on this examination a thymic cyst is a top consideration. Other potential considerations would include a thymoma or less likely a cystic appearing tracey mass. 3. Nonacute findings include coronary artery calcification and severe atherosclerotic disease of the aorta. Segundo Solis MD Other Results GENERAL: SKIN: Warm and dry. HEAD: Normocephalic. EYES: No scleral icterus. No injection or drainage. NECK: Supple, trachea midline. No JVD or lymphadenopathy. CARDIOVASCULAR: Regular rate and rhythm without murmurs, gallops, or rubs. RESPIRATORY: Breath sounds equal bilaterally. No accessory muscle use. GASTROINTESTINAL: Abdomen soft, non-tender, nondistended. MUSCULOSKELETAL: No cyanosis, or edema. BACK: Nontender without obvious deformity. No CVA tenderness. A/P Problem List: (1) DVT (deep venous thrombosis) ICD Code: I82.409 (2) COPD (chronic obstructive pulmonary disease) ICD Code: J44.9 (3) HTN (hypertension) ICD Code: I10 Assessment and Plan 89 yo male with: Extensive left sided upper extremity DVT/ Mediastinal mass - US showed: Extensive occlusive deep venous thrombosis within the left internal jugular, subclavian, axillary, brachial and basilic veins. - Hematology consult: 3 months of anticoagulation recommended, apixaban 10 mg PO BID x1 week, then 5 mg BID for the remainder of the time. Also recommended 1 asa daily. Patient is currently on heparin drip. - CT chest showed: There is a mass in the superior aspect of the anterior mediastinum measuring 5.2 x 2.5 x 3.8 cm; It has a mass effect and compresses the left brachiocephalic vein between the mass itself and the right brachiocephalic artery; Based on the appearance on this examination a thymic cyst is a top consideration. - CT surgery was consulted by Kaylee Accelerated hypertension BP better controlled today. - current home emds: procardia 30 mg PO BID, metoprolol 25 mg BID, captopril 25 mg TID - Add HCTZ if no improvement. - Vasotec IV as needed. Anemia Unsure baseline. The patient has never had a colonoscopy. Iron studies noted. - Follow CBC. - Follow up with hematology. - Check Hemoccult. Urinary retention The patient has a chronic Chery and last changed it on 10/06/16. - Continue home meds. - Chery care. COPD Breathing stable at this time. - oxygen and nebs as needed. - resume home regimen. PPx: currently on heparin drip Discharge Planning d/c pending consultation by CT surgery in additional to outpatient anticoagulation regemine. Problem Qualifiers (1) DVT (deep venous thrombosis): Qualified Code: I82.622 - Acute deep vein thrombosis (DVT) of left upper extremity, unspecified vein Greta Mcdowell MD R3 Oct 08, 2016 09:32
--- NOTE | 2016-10-08 10:11 | HHI.FPPN ---
Addendum to progress note ADDENDUM Reason for addendum: Additonal documentation Additional information Case discussed with CT surgery. Three options for mediastinal cystic mass: no surgical intervention, sternotomy with mass removal, see if IR can stick needle in cystic mass to decompress. Patient wishes to discuss options with his sister. Will consult IR to see if need decompression is an option. CT surgery will re-evaluate the patient tomorrow. Greta Mcdowell MD R3 Oct 08, 2016 10:11
--- NOTE | 2016-10-08 10:55 | PD.CAR.PN ---
CVT Progress Note Subjective/Hospital Course: Clinical and CT findings discussed with patient. Treatment options include median sternotomy with resection of anterior mediastinal mass. Alternatively, the cystic mass maybe amenable to percutaneous aspiration in efforts to relieve the innominate vein compression. If he decides against surgical intervention, ti may be worthwhile to see if IR can aspirate the cyst. He will discuss the offered options with his sister tomorrow and let us know. Will follow with you. Objective: Vital Signs Date Time Temp Pulse Resp B/P Pulse Ox O2 Delivery O2 Flow Rate FiO2 10/08/16 08:29 Room Air 10/08/16 08:00 98.1 79 20 180/79 94 10/08/16 07:35 95 21 10/08/16 04:00 Room Air 10/08/16 04:00 98.5 69 18 156/72 96 10/08/16 00:00 98.0 66 18 160/64 96 10/08/16 00:00 Room Air 10/07/16 20:13 95 21 10/07/16 20:00 98.4 72 16 150/72 95 10/07/16 20:00 Room Air 10/07/16 18:04 174/80 10/07/16 17:25 202/84 10/07/16 16:00 Room Air 10/07/16 16:00 97.9 91 20 207/91 93 10/07/16 12:00 98.5 77 20 198/86 94 10/07/16 12:00 98.5 94 20 198/ 94 10/07/16 12:00 Room Air Labs: Laboratory Tests Test 10/08/16 05:55 Activated Partial 72.0 SEC Thromboplast Time (24.3-30.1) Result Diagram: 10/07/16 0541 10/07/16 0541 Kael Leroy MD Oct 08, 2016 10:55
--- NOTE | 2016-10-08 12:51 | MB ---
cc: PIERRE CRAMER MD, SOHIT K. MD DATE OF CONSULTATION: 10/08/2016 REFERRING PHYSICIAN: Dr. Cramer REASON FOR CONSULTATION: Mediastinal mass. HISTORY Mr. Washington is a very pleasant 89-year-old gentleman with a known history of COPD, hypertension and BPH who presents with approximately 1-week history of progressive left upper extremity swelling. He has a chronic indwelling urinary catheter for which he goes to the [facility] to have it replaced every month and during his visit there for that the physician assessed him and determined it to be significant with underlying suspicion for upper extremity thrombus. He was sent to the hospital for further management. Following admission here, he has undergone further workup with a chest x-ray and subsequent chest CT which demonstrates a large anterior cystic mass with compression of the innominate vein. I am now being consulted for surgical opinion regarding the CT findings. At the present time he is clinically stable. His upper extremity swelling is improved, however, the left upper extremity is significantly more swollen than the right upper extremity. He is on anticoagulation for the thrombus and the compressive occlusion of the innominate vein. He denies any arm pain or neurologic deficits. PAST MEDICAL HISTORY: Significant for: 1. COPD. 2. Hypertension. 3. BPH. 4. Chronic indwelling Chery catheter for five years. PAST SURGICAL HISTORY: Unremarkable. ALLERGIES: No known allergies. ADMISSION MEDICATIONS 1. Albuterol. 2. Symbicort. 3. Captopril. 4. Finasteride. 5. Metoprolol. 6. Nifedipine. 7. Flomax. 8. Carafate. FAMILY HISTORY: Family history is noncontributory. REVIEW OF SYSTEMS: Review of systems is as above. All other parameters are negative. PHYSICAL EXAMINATION: On physical emanation today he is 68 kg and is 172 cm tall, blood pressure is 180/79 in the right arm, with pulse 79 which is regular, respiratory date 18 and he is afebrile. HEENT: Normocephalic, atraumatic. Pupils are round and reactive. Extraocular muscles are intact. No cervical lymphadenopathy, carotid bruits or JVD. Cardiovascular: Regular rate and rhythm. Normal S1-S2 without gallops, rubs or murmurs. Lungs: Clear to auscultation bilaterally with good exchange. No wheezing or stridor. Abdomen: The abdomen is soft, nontender, nondistended with normoactive bowel sounds. No hepatosplenomegaly. Bilateral lower extremity pulses are intact without cyanosis, clubbing or edema, no venous varicosities. Neurological: Intact with no focal deficits. Extremities: Upper extremity examination reveals a normal right upper extremity with a significantly swollen left upper extremity with edema up to the upper arm. Both radial and ulnar pulses are palpable with compression. He is neurologically intact with intact motor and sensory function. IMPRESSION 1. 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 2. COPD. 3. Hypertension 4. BPH. 5. Chronic indwelling catheter. PLAN: The clinical and CT findings were discussed in detail with the patient today. Treatment options available include mediastinotomy with resection of the anterior mediastinal mass and decompression of the innominate vein. At the present time he is not sure that he is willing to, or strong enough to tolerate a surgical procedure to that extent given his advanced age and COPD. If, in fact, he opts not to proceed with surgical resection, alternatively, a decompression aspiration of the cyst may assist in alleviating the extrinsic compression on the innominate vein and therefore allowing resumption of flow to the vein. There is a chance that this may likely result in the future recurrence of the cyst. If in fact this is the option that he wishes to consider then it may be worthwhile to involve the interventional radiologist and ascertain whether this is feasible from their standpoint. He will talk to his sister tomorrow and discuss it further with her and decide on which treatment options to proceed with. Will continue to follow him with you and delineate a treatment plan as further discussions with the patient and his sister. Thank you for allowing me to participate in the care of this patient. Kael CARLOS /11:14 AM /12:41 PM
[2016-10-08] MEDS: HEPARIN-D5W INJ 250 ML IV SCH (15:56)
[2016-10-09] VITALS (7 sets, daily range): BP systolic 130–188; BP diastolic 60–86; PULSE 59–75; RESP 17–20; TEMP 98–98.5; O2SAT 94–97
[2016-10-09 08:28] LABS: APTT (PATIENT) 50.4 SEC (24.3-30.1)
[2016-10-09] MEDS: TAMSULOSIN HCL 0.4 MG CAP PO SCH (08:38)
[2016-10-09] MEDS: FINASTERIDE 5 MG TAB PO SCH (08:38)
[2016-10-09] MEDS: DOCUSATE SODIUM 50 MG/SENNA 8.6 MG TAB PO SCH ×2 (08:39→20:10)
[2016-10-09] MEDS: BUDESONIDE-FORMOTEROL 80/4.5 MCG INHALER INH SCH ×2 (08:39→20:10)
[2016-10-09] MEDS: SODIUM CHLORIDE 0.9% FLUSH 10 ML FLUSH IV FLUSH SCH ×2 (08:39→20:09)
[2016-10-09] MEDS: METOPROLOL TARTRATE 25 MG TAB PO SCH ×2 (08:39→20:10)
[2016-10-09] MEDS: SUCRALFATE 1 GM/10 ML CUP PO SCH ×4 (08:39→20:10)
[2016-10-09] MEDS: CAPTOPRIL 25 MG TAB PO SCH ×2 (08:39→11:45)
[2016-10-09] MEDS: NIFEdipine 30 MG SUSTAINED RELEASE TAB PO SCH ×2 (08:39→20:10)
--- NOTE | 2016-10-09 10:30 | RADRPT ---
EXAM DATE/TIME: 10/09/2016 00:00 [facility] COMPARISON: CT THORAX W/O CONTRAST, October 07, 2016, 10:08. INDICATIONS : Cystic mass aspiration. CONSULTATION: The patient is currently on heparin drip for DVT thrombosis in the left arm. The mass in the anterio r mediastinum is most likely the thymic cyst. This is causing minimal venous compression. This can be easily evaluated by PET scan when the patient is clinically stable. If this is negative by PET no further evaluation may be necessary, however this could be aspirated as an outpatient in an attempt to relieve the venous compression. If this is positive by PET scan could attempt percutaneou s biopsy however thymic tumors are difficult to diagnose by biopsy. This probably does not represent lymphoma. Thank you for this consultation. Jerry Harden MD FACR on October 09, 2016 at 10:21 Board Certified Radiologist. This report was verified electronically.
[2016-10-09] MEDS ORDERED: POTASSIUM CHLORIDE 20 MEQ CONTROLLED RELEASE TAB PO ONE (14:15)
--- NOTE | 2016-10-09 14:15 | HHI.PR ---
Objective Vitals Vital Signs Date Time Temp Pulse Resp B/P Pulse Ox O2 Delivery O2 Flow Rate FiO2 10/09/16 12:00 98.1 59 18 164/85 96 10/09/16 08:00 Room Air 10/09/16 08:00 97 21 10/09/16 08:00 98.0 75 18 188/86 95 10/09/16 04:00 Room Air 10/09/16 03:50 98.5 65 17 136/64 94 10/09/16 00:10 98.3 67 17 130/60 96 10/08/16 20:00 Room Air 10/08/16 19:30 97.8 83 18 175/81 95 10/08/16 16:00 Room Air 10/08/16 16:00 98.8 73 20 132/60 93 I/O 10/08/16 10/08/16 10/08/16 10/09/16 10/09/16 10/09/16 07:00 15:00 23:00 07:00 15:00 23:00 Intake Total 75 ml 480 ml 552 ml 71 ml Output Total 300 ml 300 ml 400 ml 250 ml Balance -225 ml 180 ml 152 ml -179 ml Intake Oral 0 ml 480 ml 480 ml 0 ml IV Total 75 ml 72 ml 71 ml Output Urine Total 300 ml 300 ml 400 ml 250 ml # Bowel Movements 0 1 0 0 Result Diagram: 10/07/16 0541 10/07/16 0541 Hira Bryant MD Oct 09, 2016 14:15
--- NOTE | 2016-10-09 14:44 | HHI.PR ---
Subjective Remarks Denies cp/sob states swelling in the upper extremity is improving Nights fevers or chills BP noted to be very elevated. Objective Vitals Vital Signs Date Time Temp Pulse Resp B/P Pulse Ox O2 Delivery O2 Flow Rate FiO2 10/09/16 12:00 98.1 59 18 164/85 96 10/09/16 08:00 Room Air 10/09/16 08:00 97 21 10/09/16 08:00 98.0 75 18 188/86 95 10/09/16 04:00 Room Air 10/09/16 03:50 98.5 65 17 136/64 94 10/09/16 00:10 98.3 67 17 130/60 96 10/08/16 20:00 Room Air 10/08/16 19:30 97.8 83 18 175/81 95 10/08/16 16:00 Room Air 10/08/16 16:00 98.8 73 20 132/60 93 I/O 10/08/16 10/08/16 10/08/16 10/09/16 10/09/16 10/09/16 07:00 15:00 23:00 07:00 15:00 23:00 Intake Total 75 ml 480 ml 552 ml 71 ml Output Total 300 ml 300 ml 400 ml 250 ml Balance -225 ml 180 ml 152 ml -179 ml Intake Oral 0 ml 480 ml 480 ml 0 ml IV Total 75 ml 72 ml 71 ml Output Urine Total 300 ml 300 ml 400 ml 250 ml # Bowel Movements 0 1 0 0 Result Diagram: 10/07/16 0541 10/07/16 0541 Imaging Last Impressions Upper Extremity Ultrasound 10/06/16 120 Signed Impressions: Service Date/Time: Thursday, October 06, 2016 12:16 - CONCLUSION: Extensive occlusive deep venous thrombosis is noted within the left internal jugular, subclavian, axillary, brachial and basilic veins. Gian To MD Lower Extremity Ultrasound 10/06/16 120 Signed Impressions: Service Date/Time: Thursday, October 06, 2016 12:26 - CONCLUSION: No evidence of deep venous thrombosis within the left lower extremity. Gian To MD Chest X-Ray 10/06/16 1204 Signed Impressions: Service Date/Time: Thursday, October 06, 2016 12:50 - CONCLUSION: 1. Minimal left lower lobe atelectasis. 2. Otherwise, no acute abnormality. Wayne Cr MD Chest CT 10/06/16 0000 Signed Impressions: Service Date/Time: Friday, October 07, 2016 10:08 - CONCLUSION: 1. There is a mass in the superior aspect of the anterior mediastinum measuring 5.2 x 2.5 x 3.8 cm. It has a mass effect and compresses the left brachiocephalic vein between the mass itself and the right brachiocephalic artery. This may be a contributing factor to the recent development of left upper extremity venous thrombosis. 2. Based on the appearance on this examination a thymic cyst is a top consideration. Other potential considerations would include a thymoma or less likely a cystic appearing tracey mass. 3. Nonacute findings include coronary artery calcification and severe atherosclerotic disease of the aorta. Segundo Solis MD Objective Remarks GENERAL: Well-developed, well nourished, in no acute distress. SKIN: Focused skin assessment warm and dry. HEAD: Atraumatic. Normocephalic. EYES: Pupils equal and round. EOMI. No scleral icterus. No injection or drainage. ENT: No nasal bleeding or discharge. Mucous membranes pink and moist. NECK: Trachea midline. Supple. No nuclear rigidity. CARDIOVASCULAR: Regular rate and rhythm. No murmur appreciated. RESPIRATORY: Decreased breath sounds bilaterally with good air entry, no wheezing appreciated. MUSCULOSKELETAL: No obvious deformities. No clubbing. No cyanosis. 2+ plus edema left upper extremity from the hand to the neck. No lower extremity edema. radial pulse palpable in left upper extremity. : Chery strapped to left leg. NEUROLOGICAL: Awake and alert. No obvious cranial nerve deficits. Motor grossly within normal limits. Normal speech. PSYCHIATRIC: Appropriate mood and affect; insight and judgment normal. Procedures None Medications and IVs Current Medications Medications (Trade) Dose Ordered Sig/Billie Route Start Time Stop Time Status Last Admin (NS Flush) 2 ml UNSCH PRN IV FLUSH 10/06/16 14:30 (NS Flush) 2 ml BID IV FLUSH 10/06/16 21:00 10/09/16 08:39 (Tylenol) 650 mg Q4H PRN PO 10/06/16 14:30 (Zofran Inj) 4 mg Q6H PRN IVP 10/06/16 14:30 (Tylenol) 650 mg Q6H PRN PO 10/06/16 14:30 (Roxicodone) 5 mg Q4H PRN PO 10/06/16 14:30 (Narcan Inj) 0.4 mg UNSCH PRN IV 10/06/16 14:30 (Bethany-Colace) 1 tab BID PO 10/06/16 21:00 10/09/16 08:39 (Vasotec Inj) 2.5 mg Q6H PRN IV PUSH 10/06/16 17:00 10/07/16 17:18 (Symbicort 80-4.5 Mcg Inh) 2 puff Q12HR INH 10/06/16 21:00 10/09/16 08:39 (Capoten) 25 mg TID PO 10/06/16 18:00 10/09/16 11:45 (Proscar) 5 mg DAILY PO 10/07/16 09:00 10/09/16 08:38 (Lopressor) 25 mg BID PO 10/06/16 21:00 10/09/16 08:39 (Carafate Liq) 1 gm QID PO 10/06/16 18:00 10/09/16 11:45 Tamsulosin HCl 0.4 mg 0.4 mg DAILY PO 10/07/16 09:00 10/09/16 08:38 (Heparin-D5W Inj) 250 ml @ 0 mls/hr TITRATE IV 10/07/16 11:30 10/08/16 15:56 (Procardia Xl) 30 mg BID PO 10/07/16 12:00 10/09/16 08:39 (KCl) 20 meq ONCE ONCE PO 10/09/16 14:15 10/09/16 14:16 Urinary Catheter: No Vascular Central Line Catheter: No A/P Problem List: (1) Left upper extremity deep vein thrombosis ICD Code: I82.622 Status: Acute Plan: Continue heparin drip. Thoracic surgery and interventional radiology consulted. Options for treatment include surgical treatment, however patient refuses due to advanced age and COPD. Interventional radiology recommends outpatient PET scan and further management as per the recommendations. Patient will not get any further interventions done while this hospitalization I would transition to an oral anticoagulation as per hematology recommendations. (2) Mediastinal mass ICD Code: J98.59 Status: Acute Plan: As seen on CT described above. Cardiovascular surgery has been consulted. Options for treatment include surgical treatment and biopsy with aspiration. The patient however refuses to have a surgical intervention given his advanced age and COPD. Interventional radiology consulted. I discussed the case with Dr. 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 Dr. Harden recommends evaluation by PET scan when the patient is clinically stable. Aspiration to be attempted as an outpatient PET scan is negative. A PET scan is positive then percutaneous biopsy could be attempted. Interventional radiology believes this probably does not represent a lymphoma. The Bienvenido stated he would not take the patient off heparin to biopsy or aspirate the cyst right now. (3) Uncontrolled hypertension ICD Code: I10 Status: Acute Plan: Patient has very elevated blood pressure. Continue current antihypertensive medications which include nifedipine, metoprolol tartrate 25 mg by mouth twice a day and captopril 25 mg by mouth 3 times a day. I will increase captopril to 50 minutes by mouth 3 times a day and continue to monitor vital signs. (4) COPD (chronic obstructive pulmonary disease) ICD Code: J44.9 Status: Chronic Plan: Seems to be stable and not on exacerbation. Continue DuoNeb nebulizers when necessary. Continue Symbicort inhaled. (5) Hypokalemia ICD Code: E87.6 Status: Acute Plan: Mild replace potassium orally and check BMP in a.m. Assessment and Plan Prophylaxis: Carafate DVT prophylaxis: Patient on heparin drip. Discharge Planning Poss DC in a.m. pending stabilization of blood pressure, physical therapy, occupational therapy evaluation. Problem Qualifiers (1) Left upper extremity deep vein thrombosis: Qualified Code: I82.622 - Acute deep vein thrombosis (DVT) of other vein of left upper extremity (2) COPD (chronic obstructive pulmonary disease): Qualified Code: J44.9 - Chronic obstructive pulmonary disease, unspecified COPD type Hira Bryant MD Oct 09, 2016 14:44
[2016-10-09] MEDS ORDERED: DOXAZOSIN MESYLATE 2 MG TAB PO SCH (15:00)
[2016-10-09] MEDS: ENALAPRILAT 2.5 MG/2 ML VIAL IV PUSH PRN (16:53)
[2016-10-09] MEDS: CAPTOPRIL 50 MG TAB PO SCH (16:53)
[2016-10-09] MEDS: HEPARIN-D5W INJ 250 ML IV SCH (22:08)
[2016-10-10] VITALS (8 sets, daily range): BP systolic 156–186; BP diastolic 67–79; PULSE 62–78; RESP 16–20; TEMP 97.3–98.7; O2SAT 95–98
[2016-10-10 06:36] LABS: HEMATOCRIT 35.4 % (39.0-51.0); MEAN CELL VOLUME 84.8 FL (80.0-100.0); MEAN CORPUSCULAR HEMOGLOBIN 27.7 PG (27.0-34.0); MEAN CORPUSCULAR HGB CONC 32.7 % (32.0-36.0); PLATELET COUNT 227 TH/MM3 (150-450); RED BLOOD COUNT 4.18 MIL/MM3 (4.50-5.90); RED CELL DISTRIBUTION WIDTH 13.7 % (11.6-17.2); REVIEW FLAG FINAL; WHITE BLOOD COUNT 4.3 TH/MM3 (4.0-11.0)
[2016-10-10] MEDS: SODIUM CHLORIDE 0.9% FLUSH 10 ML FLUSH IV FLUSH SCH (08:57)
[2016-10-10] MEDS: BUDESONIDE-FORMOTEROL 80/4.5 MCG INHALER INH SCH (08:57)
[2016-10-10] MEDS: FINASTERIDE 5 MG TAB PO SCH (08:58)
[2016-10-10] MEDS: DOCUSATE SODIUM 50 MG/SENNA 8.6 MG TAB PO SCH (08:58)
[2016-10-10] MEDS: TAMSULOSIN HCL 0.4 MG CAP PO SCH (08:58)
[2016-10-10] MEDS: CAPTOPRIL 50 MG TAB PO SCH ×3 (08:58→17:45)
[2016-10-10] MEDS: NIFEdipine 30 MG SUSTAINED RELEASE TAB PO SCH (08:58)
[2016-10-10] MEDS: SUCRALFATE 1 GM/10 ML CUP PO SCH ×3 (08:58→17:45)
[2016-10-10] MEDS: METOPROLOL TARTRATE 25 MG TAB PO SCH (08:58)
--- NOTE | 2016-10-10 10:09 | PD.ONC.PN ---
Subjective Subjective Remarks Afebrile overnight. Patient resting comfortably in bed in nad. States swelling in left arm is improving. Denies chest pain. Objective Data Date Time Temp Pulse Resp B/P Pulse Ox O2 Delivery O2 Flow Rate FiO2 10/10/16 09:36 98 21 10/10/16 09:32 Room Air 21 10/10/16 08:00 98.7 78 20 186/77 95 10/10/16 04:00 Room Air 10/10/16 04:00 98.2 66 18 167/75 96 10/10/16 00:00 Room Air 10/10/16 00:00 98.4 62 16 165/79 95 10/09/16 20:57 96 21 10/09/16 20:00 98.2 73 18 171/77 97 10/09/16 20:00 Room Air 10/09/16 16:00 98.5 69 20 180/72 96 10/09/16 12:00 98.1 59 18 164/85 96 10/10/16 10/10/16 10/10/16 07:00 15:00 23:00 Intake Total 67 ml Output Total 450 ml Balance -383 ml Result Diagram: 10/10/16 0549 10/07/16 0541 Laboratory Results Laboratory Tests Test 10/10/16 05:49 White Blood Count 4.3 TH/MM3 Red Blood Count 4.18 MIL/MM3 Hemoglobin 11.6 GM/DL Hematocrit 35.4 % Mean Corpuscular Volume 84.8 FL Mean Corpuscular Hemoglobin 27.7 PG Mean Corpuscular Hemoglobin 32.7 % Concent Red Cell Distribution Width 13.7 % Platelet Count 227 TH/MM3 Mean Platelet Volume 8.8 FL Culture Results Microbiology Date/Time Procedure Status Source Growth 10/08/16 11:50 Stool Occult Blood ([facility]) - Final Complete Stool Stool HEMOCCULT NEGATIVE Imaging Studies Last Impressions Upper Extremity Ultrasound 10/06/16 1204 Signed Impressions: Service Date/Time: Thursday, October 06, 2016 12:16 - CONCLUSION: Extensive occlusive deep venous thrombosis is noted within the left internal jugular, subclavian, axillary, brachial and basilic veins. Gian To MD Lower Extremity Ultrasound 10/06/16 1204 Signed Impressions: Service Date/Time: Thursday, October 06, 2016 12:26 - CONCLUSION: No evidence of deep venous thrombosis within the left lower extremity. Gian To MD Chest X-Ray 10/06/16 1204 Signed Impressions: Service Date/Time: Thursday, October 06, 2016 12:50 - CONCLUSION: 1. Minimal left lower lobe atelectasis. 2. Otherwise, no acute abnormality. Wayne Cr MD Chest CT 10/06/16 0000 Signed Impressions: Service Date/Time: Friday, October 07, 2016 10:08 - CONCLUSION: 1. There is a mass in the superior aspect of the anterior mediastinum measuring 5.2 x 2.5 x 3.8 cm. It has a mass effect and compresses the left brachiocephalic vein between the mass itself and the right brachiocephalic artery. This may be a contributing factor to the recent development of left upper extremity venous thrombosis. 2. Based on the appearance on this examination a thymic cyst is a top consideration. Other potential considerations would include a thymoma or less likely a cystic appearing tracey mass. 3. Nonacute findings include coronary artery calcification and severe atherosclerotic disease of the aorta. Segundo Solis MD Administered Medications Medications (Trade) Dose Ordered Sig/Billie Route PRN Reason Start Time Stop Time Status Last Admin Dose Admin Sodium Chloride (NS Flush) 2 ml BID IV FLUSH 10/06/16 21:00 10/10/16 08:57 Senna/Docusate Sodium (Bethany-Colace) 1 tab BID PO 10/06/16 21:00 10/10/16 08:58 Enalaprilat (Vasotec Inj) 2.5 mg Q6H PRN IV PUSH SBP> OR = 180, DBP> OR = 100 10/06/16 17:00 10/09/16 16:53 Budesonide/ Formoterol Fumarate (Symbicort 80-4.5 Mcg Inh) 2 puff Q12HR INH 10/06/16 21:00 10/10/16 08:57 Finasteride (Proscar) 5 mg DAILY PO 10/07/16 09:00 10/10/16 08:58 Metoprolol Tartrate (Lopressor) 25 mg BID PO 10/06/16 21:00 10/10/16 08:58 Sucralfate (Carafate Liq) 1 gm QID PO 10/06/16 18:00 10/10/16 08:58 Tamsulosin HCl 0.4 mg 0.4 mg DAILY PO 10/07/16 09:00 10/10/16 08:58 Heparin Sodium/ Dextrose (Heparin-D5W Inj) 250 ml @ 0 mls/hr TITRATE IV 10/07/16 11:30 10/09/16 22:08 Nifedipine (Procardia Xl) 30 mg BID PO 10/07/16 12:00 10/10/16 08:58 Captopril (Capoten) 50 mg TID PO 10/09/16 18:00 10/10/16 08:58 Objective Remarks GENERAL: Elderly male, sitting up in bed in nad. SKIN: Warm and dry. HEAD: Normocephalic. EYES: No injection or drainage. NECK: Supple, trachea midline. CARDIOVASCULAR: Regular rate and rhythm RESPIRATORY: Breath sounds equal bilaterally. No accessory muscle use. GASTROINTESTINAL: Abdomen soft, non-tender, nondistended. EXTREMITIES: No cyanosis. left upper extremity with extensive swelling. NEUROLOGICAL: awake and alert, normal speech. moving all extremities. Assessment/Plan Assessment 89y/o male with extensive occlusive DVT in LIJ, subclavian, axillary, brachial and basilic veins, also with mediastinal mass. h/o urinary retention from BPH requiring an indwelling diop h/o COPD Plan 1. fs faxed to new patient referrals for follow up with Dr. Salinas in 2 weeks 2. patient could be started on Eliquis or Xarelto if covered by his insurance. will consult case management to assist with this UPDATE: d/w with case management. Patient will be given a copay card so he will not have a copay for one month with the Eliquis and during that month can apply for the patient assistance program. Therefore, patient started on Eliquis and could be discharged from hematology perspective. Keily Hightower Oct 10, 2016 10:09
[2016-10-10] MEDS ORDERED: APIX5TAB PO (10:23)
[2016-10-10] MEDS ORDERED: APIXABAN 5 MG TABLET PO SCH (11:00)
[2016-10-10 12:47] LABS: APTT (PATIENT) 54.5 SEC (24.3-30.1)
[2016-10-10] MEDS ORDERED: DOXAZOSIN MESYLATE 2 MG TAB PO SCH (13:45)
[2016-10-10 14:53] LABS: BICARBONATE 31.5 MEQ/L (21.0-32.0); POTASSIUM 3.3 MEQ/L (3.5-5.1)
[2016-10-10] MEDS ORDERED: POTASSIUM CHLORIDE 10 MEQ CONTROLLED RELEASE TAB PO ONE (15:15)
--- NOTE | 2016-10-10 15:17 | HHI.PR ---
Subjective Remarks bp elevated denies cp/sob low K edema in upper extremity much improved Objective Vitals Vital Signs Date Time Temp Pulse Resp B/P Pulse Ox O2 Delivery O2 Flow Rate FiO2 10/10/16 12:00 98.4 73 20 178/79 95 10/10/16 09:36 98 21 10/10/16 09:32 Room Air 21 10/10/16 08:00 98.7 78 20 186/77 95 10/10/16 04:00 Room Air 10/10/16 04:00 98.2 66 18 167/75 96 10/10/16 00:00 Room Air 10/10/16 00:00 98.4 62 16 165/79 95 10/09/16 20:57 96 21 10/09/16 20:00 98.2 73 18 171/77 97 10/09/16 20:00 Room Air 10/09/16 16:00 98.5 69 20 180/72 96 I/O 10/09/16 10/09/16 10/09/16 10/10/16 10/10/16 10/10/16 07:00 15:00 23:00 07:00 15:00 23:00 Intake Total 71 ml 480 ml 191 ml 67 ml 480 ml Output Total 250 ml 650 ml 450 ml 450 ml Balance -179 ml -170 ml -259 ml -383 ml 480 ml Intake Oral 0 ml 480 ml 120 ml 0 ml 480 ml IV Total 71 ml 71 ml 67 ml Output Urine Total 250 ml 650 ml 450 ml 450 ml # Bowel Movements 0 0 1 0 2 Result Diagram: 10/10/16 0549 10/10/16 1409 Imaging Last Impressions Upper Extremity Ultrasound 10/06/16 1204 Signed Impressions: Service Date/Time: Thursday, October 06, 2016 12:16 - CONCLUSION: Extensive occlusive deep venous thrombosis is noted within the left internal jugular, subclavian, axillary, brachial and basilic veins. Gian To MD Lower Extremity Ultrasound 10/06/16 120 Signed Impressions: Service Date/Time: Thursday, October 06, 2016 12:26 - CONCLUSION: No evidence of deep venous thrombosis within the left lower extremity. Gian To MD Chest X-Ray 10/06/16 1204 Signed Impressions: Service Date/Time: Thursday, October 06, 2016 12:50 - CONCLUSION: 1. Minimal left lower lobe atelectasis. 2. Otherwise, no acute abnormality. Wayne Cr MD Chest CT 10/06/16 0000 Signed Impressions: Service Date/Time: Friday, October 07, 2016 10:08 - CONCLUSION: 1. There is a mass in the superior aspect of the anterior mediastinum measuring 5.2 x 2.5 x 3.8 cm. It has a mass effect and compresses the left brachiocephalic vein between the mass itself and the right brachiocephalic artery. This may be a contributing factor to the recent development of left upper extremity venous thrombosis. 2. Based on the appearance on this examination a thymic cyst is a top consideration. Other potential considerations would include a thymoma or less likely a cystic appearing tracey mass. 3. Nonacute findings include coronary artery calcification and severe atherosclerotic disease of the aorta. Segundo Solis MD Objective Remarks GENERAL: Well-developed, well nourished, in no acute distress. SKIN: Focused skin assessment warm and dry. HEAD: Atraumatic. Normocephalic. EYES: Pupils equal and round. EOMI. No scleral icterus. No injection or drainage. ENT: No nasal bleeding or discharge. Mucous membranes pink and moist. NECK: Trachea midline. Supple. No nuclear rigidity. CARDIOVASCULAR: Regular rate and rhythm. No murmur appreciated. RESPIRATORY: Decreased breath sounds bilaterally with good air entry, no wheezing appreciated. MUSCULOSKELETAL: No obvious deformities. No clubbing. No cyanosis. 2+ plus edema left upper extremity from the hand to the neck. No lower extremity edema. radial pulse palpable in left upper extremity. : Chery strapped to left leg. NEUROLOGICAL: Awake and alert. No obvious cranial nerve deficits. Motor grossly within normal limits. Normal speech. PSYCHIATRIC: Appropriate mood and affect; insight and judgment normal. Procedures None Medications and IVs Current Medications Medications (Trade) Dose Ordered Sig/Billie Route Start Time Stop Time Status Last Admin (NS Flush) 2 ml UNSCH PRN IV FLUSH 10/06/16 14:30 (NS Flush) 2 ml BID IV FLUSH 10/06/16 21:00 10/10/16 08:57 (Tylenol) 650 mg Q4H PRN PO 10/06/16 14:30 (Zofran Inj) 4 mg Q6H PRN IVP 10/06/16 14:30 (Tylenol) 650 mg Q6H PRN PO 10/06/16 14:30 (Roxicodone) 5 mg Q4H PRN PO 10/06/16 14:30 (Narcan Inj) 0.4 mg UNSCH PRN IV 10/06/16 14:30 (Bethany-Colace) 1 tab BID PO 10/06/16 21:00 10/10/16 08:58 (Vasotec Inj) 2.5 mg Q6H PRN IV PUSH 10/06/16 17:00 10/09/16 16:53 (Symbicort 80-4.5 Mcg Inh) 2 puff Q12HR INH 10/06/16 21:00 10/10/16 08:57 (Proscar) 5 mg DAILY PO 10/07/16 09:00 10/10/16 08:58 (Lopressor) 25 mg BID PO 10/06/16 21:00 10/10/16 08:58 (Carafate Liq) 1 gm QID PO 10/06/16 18:00 10/10/16 11:30 (Flomax) 0.4 mg DAILY PO 10/07/16 09:00 10/10/16 08:58 (Procardia Xl) 30 mg BID PO 10/07/16 12:00 10/10/16 08:58 (Capoten) 50 mg TID PO 10/09/16 18:00 10/10/16 11:30 (Eliquis) 10 mg BID PO 10/10/16 11:00 10/10/16 11:30 (Cardura) 2 mg DAILY PO 10/10/16 13:45 10/10/16 15:07 Urinary Catheter: No Vascular Central Line Catheter: No A/P Problem List: (1) Left upper extremity deep vein thrombosis ICD Code: I82.622 Status: Acute Plan: Continue heparin drip. Thoracic surgery and interventional radiology consulted. Options for treatment include surgical treatment, however patient refuses due to advanced age and COPD. Interventional radiology recommends outpatient PET scan and further management as per the recommendations. Patient will not get any further interventions done while this hospitalization I would transition to an oral anticoagulation as per hematology recommendations. 10/10 Patient started on Eliquis as per hematology. Heparin drip discontinued. Will DC home on Eliquis. (2) Mediastinal mass ICD Code: J98.59 Status: Acute Plan: As seen on CT described above. Cardiovascular surgery has been consulted. Options for treatment include surgical treatment and biopsy with aspiration. The patient however refuses to have a surgical intervention given his advanced age and COPD. Interventional radiology consulted. I discussed the case with Dr. 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 Dr. Harden recommends evaluation by PET scan when the patient is clinically stable. Aspiration to be attempted as an outpatient PET scan is negative. A PET scan is positive then percutaneous biopsy could be attempted. Interventional radiology believes this probably does not represent a lymphoma. The [facility] stated he would not take the patient off heparin to biopsy or aspirate the cyst right now. (3) Uncontrolled hypertension ICD Code: I10 Status: Acute Plan: Patient has very elevated blood pressure. Continue current antihypertensive medications which include nifedipine, metoprolol tartrate 25 mg by mouth twice a day and captopril 25 mg by mouth 3 times a day. I will increase captopril to 50 mg by mouth 3 times a day and continue to monitor vital signs. 10/10 BP still elevated - Will start Doxazosin. will DC home if bp better controlled on Doxazosin. (4) COPD (chronic obstructive pulmonary disease) ICD Code: J44.9 Status: Chronic Plan: Seems to be stable and not on exacerbation. Continue DuoNeb nebulizers when necessary. Continue Symbicort inhaled. (5) Hypokalemia ICD Code: E87.6 Status: Acute Plan: Replace potassium orally. Assessment and Plan Prophylaxis: Carafate DVT prophylaxis: Patient on heparin drip. Discharge Planning DC later today if bp better. PT clear patient to go home. Problem Qualifiers (1) Left upper extremity deep vein thrombosis: Qualified Code: I82.622 - Acute deep vein thrombosis (DVT) of other vein of left upper extremity (2) COPD (chronic obstructive pulmonary disease): Qualified Code: J44.9 - Chronic obstructive pulmonary disease, unspecified COPD type Hira Bryant MD Oct 10, 2016 15:17
[2016-10-10] MEDS ORDERED: CARD2TAB PO (16:38)
[2016-10-10] MEDS ORDERED: CAPT50TA PO (16:38)
--- NOTE | 2016-10-10 16:40 | HHI.DCPOC ---
Discharge Care Plan Diagnosis: (1) COPD (chronic obstructive pulmonary disease) (2) Hypokalemia (3) Mediastinal mass (4) DVT (deep venous thrombosis) (5) HTN (hypertension) (6) Uncontrolled hypertension (7) Left upper extremity deep vein thrombosis Goals to Promote Your Health * To prevent worsening of your condition and complications * To maintain your health at the optimal level Directions to Meet Your Goals Take your medications as prescribed Follow your dietary instruction Follow activity as directed Keep your appointments as scheduled Take your immunizations and boosters as scheduled If your symptoms worsen call your PCP, if no PCP go to Urgent Care Center or Emergency Room Smoking is Dangerous to Your Health. Avoid second hand smoke Call the 24-hour hour crisis hotline for domestic abuse at Hira Bryant MD Oct 10, 2016 16:40
--- NOTE | 2016-10-10 16:42 | HHI.DS ---
Discharge Summary Admission Date Oct 06, 2016 at 14:14 Discharge Date: Oct 10, 2016 Admitting Diagnosis extensive left upper extremity DVT (1) Left upper extremity deep vein thrombosis ICD Code: I82.622 Diagnosis: Principal (2) Mediastinal mass ICD Code: J98.59 Diagnosis: Principal (3) Uncontrolled hypertension ICD Code: I10 Diagnosis: Principal (4) COPD (chronic obstructive pulmonary disease) ICD Code: J44.9 Diagnosis: Principal (5) Hypokalemia ICD Code: E87.6 Diagnosis: Principal Procedures None Brief History - From Admission The patient is an 89-year-old male with a past medical history of COPD and chronic Chery catheter who is presenting to the hospital with left arm swelling. He states that one week ago he noticed his left arm has become swollen. He says he has home health care and reports daily weights and blood pressures on a daily basis and mentioned that his left arm was becoming more swollen. The patient denied any pain in the arm. He did endorse a discomfort in his left armpit. [facility] had an appointment today [facility] to [facility] his Chery catheter, which he does every month, and the physician assessed him and referred him to the hospital as there were concerns of blood clots in the left arm. The patient denies any history of prior blood clots. He denies any injury to the left upper extremity. He says he has been ambulating with his cane. The patient does not recall a history of blood clots in his family. The patient also mentioned that his left leg swells on and off. The patient says he has experienced chills here and there. He has been having normal bowel movements with stool softeners. He denies any recent travel. He says he's gained weight over the past couple of days. He does not have much of an appetite. He denies any rashes. He endorses some shortness of breath at night secondary to his COPD. He mentions he never had a colonoscopy because the cost of it was astronomical. The patient mentions he was at [facility] last year for hematuria and he had a PICC line placed at that time, though he is unsure if it was in the left or right upper extremity. CBC/BMP: 10/10/16 0549 10/10/16 1409 Significant Findings Laboratory Tests Test 10/07/16 10/07/16 10/08/16 10/09/16 19:18 22:13 05:55 07:54 Activated Partial 93.4 SEC 65.3 SEC 72.0 SEC 50.4 SEC Thromboplast Time (24.3-30.1) (24.3-30.1) (24.3-30.1) (24.3-30.1) Test 10/10/16 10/10/16 10/10/16 05:49 12:09 14:09 Red Blood Count 4.18 MIL/MM3 (4.50-5.90) Hemoglobin 11.6 GM/DL (13.0-17.0) Hematocrit 35.4 % (39.0-51.0) Activated Partial 54.5 SEC Thromboplast Time (24.3-30.1) Potassium Level 3.3 MEQ/L (3.5-5.1) Imaging Last Impressions Upper Extremity Ultrasound 10/06/16 1204 Signed Impressions: Service Date/Time: Thursday, October 06, 2016 12:16 - CONCLUSION: Extensive occlusive deep venous thrombosis is noted within the left internal jugular, subclavian, axillary, brachial and basilic veins. Gian To MD Lower Extremity Ultrasound 10/06/16 1204 Signed Impressions: Service Date/Time: Thursday, October 06, 2016 12:26 - CONCLUSION: No evidence of deep venous thrombosis within the left lower extremity. Gian To MD Chest X-Ray 10/06/16 1204 Signed Impressions: Service Date/Time: Thursday, October 06, 2016 12:50 - CONCLUSION: 1. Minimal left lower lobe atelectasis. 2. Otherwise, no acute abnormality. Wayne Cr MD Chest CT 10/06/16 0000 Signed Impressions: Service Date/Time: Friday, October 07, 2016 10:08 - CONCLUSION: 1. There is a mass in the superior aspect of the anterior mediastinum measuring 5.2 x 2.5 x 3.8 cm. It has a mass effect and compresses the left brachiocephalic vein between the mass itself and the right brachiocephalic artery. This may be a contributing factor to the recent development of left upper extremity venous thrombosis. 2. Based on the appearance on this examination a thymic cyst is a top consideration. Other potential considerations would include a thymoma or less likely a cystic appearing tracey mass. 3. Nonacute findings include coronary artery calcification and severe atherosclerotic disease of the aorta. Segundo Solis MD PE at Discharge GENERAL: Well-developed, well nourished, in no acute distress. SKIN: Focused skin assessment warm and dry. HEAD: Atraumatic. Normocephalic. EYES: Pupils equal and round. EOMI. No scleral icterus. No injection or drainage. ENT: No nasal bleeding or discharge. Mucous membranes pink and moist. NECK: Trachea midline. Supple. No nuclear rigidity. CARDIOVASCULAR: Regular rate and rhythm. No murmur appreciated. RESPIRATORY: Decreased breath sounds bilaterally with good air entry, no wheezing appreciated. MUSCULOSKELETAL: No obvious deformities. No clubbing. No cyanosis. 2+ plus edema left upper extremity from the hand to the neck. No lower extremity edema. radial pulse palpable in left upper extremity. : Chery strapped to left leg. NEUROLOGICAL: Awake and alert. No obvious cranial nerve deficits. Motor grossly within normal limits. Normal speech. PSYCHIATRIC: Appropriate mood and affect; insight and judgment normal. Hospital Course (1) Left upper extremity deep vein thrombosis Started on a heparin drip. Thoracic surgery and interventional radiology consulted. Options for treatment included surgical treatment, however patient refused due to advanced age and COPD. Interventional radiology recommends outpatient PET scan and further management as per the recommendations. Patient refused to get any further interventions done while this hospitalization. Patient transitioned to oral anticoagulation as per hematology recommendations. 10/10 Patient started on Eliquis as per hematology. Heparin drip discontinued. Will DC home on Eliquis. (2) Mediastinal mass As seen on CT described above. Cardiovascular surgery has been consulted. Options for treatment include surgical treatment and biopsy with aspiration. The patient however refuses to have a surgical intervention given his advanced age and COPD. Interventional radiology consulted. I discussed the case with Dr. 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 Dr. Harden recommends evaluation by PET scan when the patient is clinically stable. Aspiration to be attempted as an outpatient if PET scan is negative. A PET scan is positive then percutaneous biopsy could be attempted. Interventional radiology believes this probably does not represent a lymphoma. He also recommended not take the patient off heparin to biopsy or aspirate the cyst right now. (3) Uncontrolled hypertension Patient has very elevated blood pressure. Continue current antihypertensive medications which include nifedipine, metoprolol tartrate 25 mg by mouth twice a day and captopril 25 mg by mouth 3 times a day. I will increase captopril to 50 mg by mouth 3 times a day and continue to monitor vital signs. 10/10 BP still elevated - Will start Doxazosin. will DC home if bp better controlled on Doxazosin. (4) COPD (chronic obstructive pulmonary disease) Seems to be stable and not on exacerbation. Continue DuoNeb nebulizers when necessary. Continue Symbicort inhaled. (5) Hypokalemia Replaced potassium orally, monitored bmp. Prophylaxis: Carafate DVT prophylaxis: Patient on heparin drip transitioned to oral before DC. Pt Condition on Discharge: Stable Discharge Disposition: Discharge Home Discharge Time: > 30 minutes Discharge Instructions DIET: Follow Instructions for: As Tolerated, No Restrictions Activities you can perform: Regular-No Restrictions Activities to Avoid: Prolonged Standing, Strenuous Activity Follow up Referrals: Appointment for Follow Up - 2 Weeks with Charly Salinas MD PCP Follow-up - 2-3 Days New Medications: Apixaban (Eliquis) 5 Mg Tab 5 MG PO BID Blood Clot Prevention #60 Ref 0 TAB Captopril (Captopril) 50 Mg Tab 50 MG PO TID Blood Pressure Management #93 TAB Doxazosin (Cardura) 2 Mg Tab 2 MG PO DAILY Blood Pressure Management #31 TAB Continued Medications: Albuterol 18 GM Inh (Ventolin Hfa 18 GM Inh) 90 Mcg/Act Aer 2 PUFF INH QID PRN SHORTNESS OF BREATH #1 Ref 0 INHALER Budesonide-Formoterol Inh (Symbicort Inh) 80-4.5 Mcg/Act Aero 2 PUFF INH Q12HR Asthma Management #1 Ref 0 INHALER Finasteride (Proscar) 5 Mg Tab 5 MG PO DAILY Do not crush. Manage Prostate Problems #30 Ref 0 TAB Metoprolol Tartrate (Metoprolol Tartrate) 25 Mg Tab 25 MG PO BID Blood Pressure Management #60 Ref 0 TAB Nifedipine ER 24 HR (Adalat CC) 30 Mg Tab 30 MG PO BID Blood Pressure Management #30 Ref 0 TAB Sucralfate Liq (Sucralfate Liq) 1 Gm/10 Ml Ellen 1 GM PO QID on empty stomach STOMACH ACID #1200 ML Tamsulosin (Tamsulosin) 0.4 Mg Cap 0.4 MG PO DAILY Manage Prostate Problems #30 Ref 0 CAP Discontinued Medications: Captopril (Captopril) 25 Mg Tab 25 MG PO TID Take 1 hr before meals. Blood Pressure Management #90 Ref 0 TAB Hira Bryant MD Oct 10, 2016 16:42
== END 2016-10-10 17:58 | disposition home or self-care (01) | DRG 299 ==
LOC: NEPE 11:52 → NEDA 14:14 → N04A 19:22
PROVIDERS: ADMIT Hospitalist; ATTEND Hospitalist
DX: I82.C12 Acute embolism and thrombosis of left internal jugular vein (principal); E87.6 Hypokalemia; J98.59 Other diseases of mediastinum, not elsewhere classified; E87.5 Hyperkalemia; J44.9 Chronic obstructive pulmonary disease, unspecified; D64.9 Anemia, unspecified; I10 Essential (primary) hypertension; I82.622 Acute embolism and thrombosis of deep veins of left upper extremity; N40.1 Benign prostatic hyperplasia with lower urinary tract symptoms; R33.8 Other retention of urine; Z66 Do not resuscitate; Z87.891 Personal history of nicotine dependence
CPT/HCPCS: 71010; 71250; 80048; 80053; 82272; 82607; 82728; 82746; 83540; 83550; 85025; 85027; 85610; 85730; 93971; J0360; J1644; J1650